=== PATIENT | male | born 1985 | race Caucasian/White ===

== ENCOUNTER 2016-08-13 15:37 | Observation (INO) | payer MEDICARE, MEDICAID ==
[~2016-08-13] VITALS: Ht 185.4 cm; Wt 75.0 kg
[~2016-08-13 15:37] MED LIST: ALBU1AER INH; BACL10TA; PALI234P IM; SYMB160A INH
[2016-08-13 15:38] VITALS: BP 149/87; PULSE 90; RESP 19; TEMP 97.9; O2SAT 98
--- NOTE | 2016-08-13 15:48 | PD ---
Physical Exam Date Seen by Provider: Aug 13, 2016 Time Seen by Provider: 15:46 Narrative 31 yo male here for abdominal pain and N/V. Started today. Pain is 10/10. Nothing makes it better. No injuries. No other medical complaints today. No bloody hemesys. Vitals sign stable. Patient awaiting bed placement. Data Data Last Documented VS Vital Signs Date Time Temp Pulse Resp B/P Pulse Ox O2 Delivery O2 Flow Rate FiO2 08/13/16 15:38 97.9 90 19 149/[address] [facility] Medical Record Reviewed: Yes Supervised Visit with NASH: Devyn Lora Aug 13, 2016 15:48
[2016-08-13] MEDS ORDERED: SODIUM CHLOR 0.9% 1000 ML INJ 1,000 ML IV SCH (18:48)
--- NOTE | 2016-08-13 18:56 | PD ---
HPI Chief Complaint: Abdominal Pain Time Seen by Provider: 18:34 Travel History International Travel<30 days: No Contact w/Intl Traveler<30days: No Traveled to known affect area: No History of Present Illness HPI Patient is a 31-year-old male who presents to emergency room with complaints of abdominal pain. Patient reports that this morning, he has had diffuse abdominal pain with nausea and vomiting. Denies any diarrhea. Patient reports the pain is worse to his right lower quadrant of his abdomen. Denies history of pain like this in the past. Patient denies fevers or chills, reports that nothing is making his pain better or worse. Denies any sick contacts. Reports that he has not been able to eat anything a secondary to this nausea, vomiting or abdominal pain. [facility] Social History Alcohol Use: Yes Tobacco Use: Yes Substance Use: No Allergies-Medications (Allergen,Severity, Reaction): Coded Allergies: Codeine (Verified Allergy, Unknown, 06/15/15) Reported Meds & Prescriptions Reported Meds & Active Scripts Active Reported Symbicort Inh (Budesonide/Formoterol Fumarate) 80-4.5 Mcg/Act Aero 2 Puff INH Q12HR Proair Hfa 8.5 GM Inh (Albuterol Sulfate) 90 Mcg/Act Aer 2 Puff INH Q4-6H PRN 108 mcg/actuation Gemfibrozil 600 Mg Tab 600 Mg PO BIDAC Take 30 minutes prior to breakfast and dinner. Baclofen 10 Mg Tab 10 Mg PO BID Review of Systems General / Constitutional: No: Fever, Chills Eyes: No: Visual changes HENT: No: Headaches Cardiovascular: No: Chest Pain or Discomfort Respiratory: No: Shortness of Breath Gastrointestinal: Positive: Nausea, Vomiting, Abdominal Pain, No: Diarrhea, Constipation Genitourinary: No: Dysuria Musculoskeletal: No: Pain Skin: No Rash Neurologic: No: Weakness Psychiatric: No: Depression Endocrine: No: Polydipsia Hematologic/Lymphatic: No: Easy Bruising Physical Exam Narrative GENERAL: No acute distress, nontoxic SKIN: Focused skin assessment warm/dry. HEAD: Atraumatic. Normocephalic. EYES: Pupils equal and round. No scleral icterus. No injection or drainage. ENT: No nasal bleeding or discharge. Mucous membranes pink and moist. NECK: Trachea midline. No JVD. CARDIOVASCULAR: Regular rate and rhythm. No murmur appreciated. RESPIRATORY: No accessory muscle use. Clear to auscultation. Breath sounds equal bilaterally. GASTROINTESTINAL: Abdomen soft, tender to the right lower quadrant with rebound or guarding on exam, nondistended abdomen MUSCULOSKELETAL: No obvious deformities. No clubbing. No cyanosis. No edema. NEUROLOGICAL: Awake and alert. No obvious cranial nerve deficits. Motor grossly within normal limits. Normal speech. PSYCHIATRIC: Appropriate mood and affect; insight and judgment normal. Data Data Last Documented VS Vital Signs Date Time Temp Pulse Resp B/P Pulse Ox O2 Delivery O2 Flow Rate FiO2 08/13/16 20:51 98 18 144/88 100 Room Air 08/13/16 15:38 97.9 Orders Complete Blood Count With Diff (08/13/16 18:48) Comprehensive Metabolic Panel (08/13/16 18:48) Lipase (08/13/16 18:48) Prothrombin Time / Inr (Pt) (08/13/16 18:48) Act Partial Throm Time (Ptt) (08/13/16 18:48) Urinalysis - C+S If Indicated (08/13/16 18:48) Ct Abd/Pel W Iv Contrast(Rout) (08/13/16 18:48) Iv Access Insert/Monitor (08/13/16 18:48) NPO (08/13/16 18:48) Ondansetron Inj (Zofran Inj) (08/13/16 19:00) Sodium Chlor 0.9% 1000 Ml Inj (Ns 1000 M (08/13/16 18:48) Sodium Chloride 0.9% Flush (Ns Flush) (08/13/16 19:00) Ketorolac Inj (Toradol Inj) (08/13/16 19:00) Iohexol 350 Inj (Omnipaque 350 Inj) (08/13/16 20:14) Labs Laboratory Tests Test 08/13/16 18:50 White Blood Count 15.4 TH/MM3 Red Blood Count 5.45 MIL/MM3 Hemoglobin 17.4 GM/DL Hematocrit 51.0 % Mean Corpuscular Volume 93.5 FL Mean Corpuscular Hemoglobin 31.9 PG Mean Corpuscular Hemoglobin 34.1 % Concent Red Cell Distribution Width 12.8 % Platelet Count 246 TH/MM3 Mean Platelet Volume 8.5 FL Neutrophils (%) (Auto) 87.3 % Lymphocytes (%) (Auto) 5.8 % Monocytes (%) (Auto) 6.8 % Eosinophils (%) (Auto) 0.0 % Basophils (%) (Auto) 0.1 % Neutrophils # (Auto) 13.4 TH/MM3 Lymphocytes # (Auto) 0.9 TH/MM3 Monocytes # (Auto) 1.0 TH/MM3 Eosinophils # (Auto) 0.0 TH/MM3 Basophils # (Auto) 0.0 TH/MM3 CBC Comment DIFF FINAL Differential Comment Prothrombin Time 10.0 SEC Prothromb Time International 0.9 RATIO Ratio Activated Partial 26.4 SEC Thromboplast Time Urine Color LIGHT-YELLOW Urine Turbidity CLEAR Urine pH 7.0 Urine Specific [place] 1.004 Urine Protein NEG mg/dL Urine Glucose (UA) NEG mg/dL Urine Ketones NEG mg/dL Urine Occult Blood NEG Urine Nitrite NEG Urine Bilirubin NEG Urine Urobilinogen LESS THAN 2.0 MG/DL Urine Leukocyte Esterase NEG Urine Bacteria RARE /hpf Microscopic Urinalysis Comment CULT NOT INDICATED Sodium Level 135 MEQ/L Potassium Level 3.7 MEQ/L Chloride Level 98 MEQ/L Carbon Dioxide Level 26.7 MEQ/L Anion Gap 10 MEQ/L Blood Urea Nitrogen 9 MG/DL Creatinine 1.13 MG/DL Estimat Glomerular Filtration 75 ML/MIN Rate Random Glucose 108 MG/DL Calcium Level 9.6 MG/DL Total Bilirubin 0.8 MG/DL Aspartate Amino Transf 21 U/L (AST/SGOT) Alanine Aminotransferase 31 U/L (ALT/SGPT) Alkaline Phosphatase 73 U/L Total Protein 8.0 GM/DL Albumin 4.4 GM/DL Lipase 112 U/L [facility] Medical Decision Making Medical Screen Exam Complete: Yes Emergency Medical Condition: Yes Interpretation(s) Vital Signs Date Time Temp Pulse Resp B/P Pulse Ox O2 Delivery O2 Flow Rate FiO2 08/13/16 15:38 97.9 90 19 149/87 98 Room Air Differential Diagnosis Acute appendicitis, gastroenteritis, UTI, electrolyte abnormality, dehydration Narrative Course Patient is a 31-year-old male who presents to emergency room with complaints of abdominal pain which has been ongoing all day. He endorses the pain is diffuse throughout his abdomen. On palpation, patient has increased pain to his right lower quadrant with no rebound or guarding on exam. Vital Signs Date Time Temp Pulse Resp B/P Pulse Ox O2 Delivery O2 Flow Rate FiO2 08/13/16 15:38 97.9 90 19 149/87 98 Room Air Patient with RLQ abdominal pain. Labs as well as ct of abdomen ordered to evaluate for possible appendicitis. Laboratory Tests Test 08/13/16 18:50 White Blood Count 15.4 TH/MM3 (4.0-11.0) Red Blood Count 5.45 MIL/MM3 (4.50-5.90) Hemoglobin 17.4 GM/DL (13.0-17.0) Hematocrit 51.0 % (39.0-51.0) Mean Corpuscular Volume 93.5 FL (80.0-100.0) Mean Corpuscular Hemoglobin 31.9 PG (27.0-34.0) Mean Corpuscular Hemoglobin 34.1 % Concent (32.0-36.0) Red Cell Distribution Width 12.8 % (11.6-17.2) Platelet Count 246 TH/MM3 (150-450) Mean Platelet Volume 8.5 FL (7.0-11.0) Neutrophils (%) (Auto) 87.3 % (16.0-70.0) Lymphocytes (%) (Auto) 5.8 % (9.0-44.0) Monocytes (%) (Auto) 6.8 % (0.0-8.0) Eosinophils (%) (Auto) 0.0 % (0.0-4.0) Basophils (%) (Auto) 0.1 % (0.0-2.0) Neutrophils # (Auto) 13.4 TH/MM3 (1.8-7.7) Lymphocytes # (Auto) 0.9 TH/MM3 (1.0-4.8) Monocytes # (Auto) 1.0 TH/MM3 (0-0.9) Eosinophils # (Auto) 0.0 TH/MM3 (0-0.4) Basophils # (Auto) 0.0 TH/MM3 (0-0.2) CBC Comment DIFF FINAL Differential Comment Prothrombin Time 10.0 SEC (9.8-11.6) Prothromb Time International 0.9 RATIO Ratio Activated Partial 26.4 SEC Thromboplast Time (24.3-30.1) Urine Color LIGHT-YELLOW (YELLW/STRAW) Urine Turbidity CLEAR (CLEAR) Urine pH 7.0 (5.0-8.5) Urine Specific [place] 1.004 (1.002-1.035) Urine Protein NEG mg/dL (NEG-TRACE) Urine Glucose (UA) NEG mg/dL (NEG) Urine Ketones NEG mg/dL (NEG) Urine Occult Blood NEG (NEG) Urine Nitrite NEG (NEG) Urine Bilirubin NEG (NEG) Urine Urobilinogen LESS THAN 2.0 MG/DL (LESS THAN 2.0) Urine Leukocyte Esterase NEG (NEG) Urine Bacteria RARE /hpf (NONE) Microscopic Urinalysis Comment CULT NOT INDICATED Sodium Level 135 MEQ/L (136-145) Potassium Level 3.7 MEQ/L (3.5-5.1) Chloride Level 98 MEQ/L (98-107) Carbon Dioxide Level 26.7 MEQ/L (21.0-32.0) Anion Gap 10 MEQ/L (5-15) Blood Urea Nitrogen 9 MG/DL (7-18) Creatinine 1.13 MG/DL (0.60-1.30) Estimat Glomerular Filtration 75 ML/MIN (>89) Rate Random Glucose 108 MG/DL (74-106) Calcium Level 9.6 MG/DL (8.5-10.1) Total Bilirubin 0.8 MG/DL (0.2-1.0) Aspartate Amino Transf 21 U/L (15-37) (AST/SGOT) Alanine Aminotransferase 31 U/L (12-78) (ALT/SGPT) Alkaline Phosphatase 73 U/L (45-117) Total Protein 8.0 GM/DL (6.4-8.2) Albumin 4.4 GM/DL (3.4-5.0) Lipase 112 U/L (73-393) Last Impressions Abdomen/Pelvis CT 08/13/16 1848 Signed Impressions: Service Date/Time: Saturday, August 13, 2016 20:12 - CONCLUSION: Appendicitis. Gabriel Lowry MD Patient with acute appendicitis. I reviewed all labs and all studies with patient detail. Patient agreeable to plan of care. Reviewed with general surgery Dr. Jeffrey who accepts patient to his service. Physician Communication Physician Communication case reviewed with Dr. Jeffrey who accepts pt to service Diagnosis Primary Impression: Appendicitis, acute Qualified Code: K35.3 - Acute appendicitis with localized peritonitis Admitting Information Admitting Physician Requests: Observation Marilu Marie DO Aug 13, 2016 18:56
[2016-08-13] MEDS ORDERED: SODIUM CHLORIDE 0.9% FLUSH 10 ML FLUSH IV FLUSH PRN ×2 (19:00→22:15)
[2016-08-13] MEDS ORDERED: ONDANSETRON HCL 4 MG/2 ML VIAL IVP ONE (19:00)
[2016-08-13] MEDS ORDERED: KETOROLAC TROMETHAMINE 30 MG/ML (IVP) VIAL IV PUSH ONE (19:00)
[2016-08-13 19:16] LABS: AUTOMATED NEUTROPHIL # 13.4 TH/MM3 (1.8-7.7); BASOPHIL % 0.1 % (0.0-2.0); HEMO FLAGS DIFF FINAL; LYMPH % 5.8 % (9.0-44.0); LYMPHOCYTE # 0.9 TH/MM3 (1.0-4.8); MEAN CELL VOLUME 93.5 FL (80.0-100.0); MEAN CORPUSCULAR HEMOGLOBIN 31.9 PG (27.0-34.0); MEAN CORPUSCULAR HGB CONC 34.1 % (32.0-36.0); MONO % 6.8 % (0.0-8.0); NEUT % 87.3 % (16.0-70.0); PLATELET COUNT 246 TH/MM3 (150-450); RED BLOOD COUNT 5.45 MIL/MM3 (4.50-5.90); RED CELL DISTRIBUTION WIDTH 12.8 % (11.6-17.2); WHITE BLOOD COUNT 15.4 TH/MM3 (4.0-11.0)
[2016-08-13 19:29] LABS: APTT (PATIENT) 26.4 SEC (24.3-30.1); INTERNATIONAL NORMALIZED RATIO 0.9 RATIO
[2016-08-13 19:35] LABS: BACTERIA, URINE RARE /hpf; BLOOD, URINE NEG (NEG); COMMENT (UR) CULT NOT INDICATED; CULTURE IF INDICATED CULT NOT INDICATED; GLUCOSE,URINE NEG (NEG); KETONE, URINE NEG (NEG); NITRITE,URINE NEG (NEG); URINE COLOR LIGHT-YELLOW (YELLW/STRAW)
[2016-08-13 19:39] LABS: ANION GAP 10 MEQ/L (5-15); AST (GOT) 21 U/L (15-37); BICARBONATE 26.7 MEQ/L (21.0-32.0); BLOOD UREA NITROGEN 9 MG/DL (7-18); CHLORIDE 98 MEQ/L (98-107); GLOMERULAR FILTRATION RATE 75 ML/MIN (>89); POTASSIUM 3.7 MEQ/L (3.5-5.1); SODIUM (NA) 135 MEQ/L (136-145)
[2016-08-13 19:42] LABS: ALKALINE PHOSPHATASE 73 U/L (45-117); ALT (GPT) 31 U/L (12-78); TOTAL BILIRUBIN ADULT 0.8 MG/DL (0.2-1.0)
[2016-08-13] MEDS ORDERED: IOHEXOL 350 MG/ML 10 ML VIAL (for RAD DIAG) IV ONE (20:14)
[2016-08-13 20:51] VITALS: BP 144/88; PULSE 98; RESP 18; O2SAT 100
[2016-08-13] MEDS ORDERED: ALBUAER3 INH (20:55)
[2016-08-13] MEDS ORDERED: SYMB80AE INH (20:55)
[2016-08-13] MEDS ORDERED: BACL10TA PO (20:55)
[2016-08-13] MEDS ORDERED: GEMF600T PO (20:55)
--- NOTE | 2016-08-13 20:58 | RADRPT ---
EXAM DATE/TIME: 08/13/2016 20:12 [place] COMPARISON: No previous studies available for comparison. INDICATIONS : Abdominal pain with nausea and vomiting. IV CONTRAST: 100 cc Omnipaque 350 (iohexol) IV ORAL CONTRAST: No oral contrast ingested. RADIATION DOSE: 6.64 CTDIvol (mGy) MEDICAL HISTORY : None SURGICAL HISTORY : None. ENCOUNTER: Initial ACUITY: 1 day PAIN SCALE: 5/10 LOCATION: abdomen TECHNIQUE: Volumetric scanning of the abdomen and pelvis was performed. Using automated exposure control and ad justment of the mA and/or kV according to patient size, radiation dose was kept as low as reasonably achievable to obtain optimal diagnostic quality images. FINDINGS: LOWER LUNGS: The visualized lower lungs are clear. LIVER: Homogeneous density without lesion. There is no dilation of the biliary tree. No calcified [place] es. SPLEEN: Normal size without lesion. PANCREAS: Within normal limits. KIDNEYS: Normal in size and shape. There is no mass, stone or hydronephrosis. ADRENAL GLANDS: Within normal limits. VASCULAR: There is no aortic aneurysm. BOWEL/MESENTERY: The appendix is distended. There is mild induration around the appendix in the right lower quadrant. An abscess is not seen. ABDOMINAL WALL: Within normal limits. RETROPERITONEUM: There is no lymphadenopathy. BLADDER: No wall thickening or mass. REPRODUCTIVE: Within normal limits. INGUINAL: There is no lymphadenopathy or hernia. MUSCULOSKELETAL: Within normal limits for patient age. CONCLUSION: Appendicitis. Gabriel Lowry MD on August 13, 2016 at 20:54 Board Certified Radiologist. This report was verified electronically.
[2016-08-13] MEDS ORDERED: PIPERACIL-TAZO 3.375 GM PREMIX 50 ML IV ONE (21:30)
[2016-08-13] MEDS ORDERED: CIPROFLOXACIN 400 MG PREMIX 200 ML IV ONE (21:30)
[2016-08-13] MEDS ORDERED: metroNIDAZOLE 500 MG INJ 100 ML IV ONE (21:30)
[2016-08-13] MEDS ORDERED: HYDROmorphone HCL PF 1 MG/ML VIAL IVP PRN (22:15)
[2016-08-13] MEDS ORDERED: ENALAPRILAT 1.25 MG/ML VIAL IV PRN (22:15)
[2016-08-13] MEDS ORDERED: ACETAMINOPHEN/HYDROcodone 325 MG/5 MG TAB PO PRN ×2 (22:15)
[2016-08-13] MEDS ORDERED: KETOROLAC TROMETHAMINE 30 MG/ML (IVP) VIAL IVP PRN (22:15)
[2016-08-13] MEDS ORDERED: ONDANSETRON HCL 4 MG/2 ML VIAL IV PRN (22:15)
[2016-08-13 22:32] VITALS: BP 109/58; PULSE 100; RESP 18; O2SAT 97
[2016-08-13] MEDS: SODIUM CHLOR 0.9% 1000 ML INJ 1,000 ML IV SCH (22:33)
--- NOTE | 2016-08-13 22:57 | MH ---
cc: JOSELITO MURRAY DATE OF ADMISSION 08/13/2016 CHIEF COMPLAINT Acute appendicitis. HISTORY OF PRESENT ILLNESS The patient is a 31-year-old male who this afternoon developed increasing abdominal pain on his right flank area. He presented to the emergency department at [facility], was found to have significant tenderness on exam. Evaluation showed a leukocytosis and CT scan concerning for acute appendicitis. This was non-ruptured. The patient was not found to be septic. Patient has never had pain like this prior. No previous abdominal operations. No nausea, vomiting, diarrhea, constipation, fevers, chills, chest pain, shortness breath or any other symptoms. REVIEW OF SYSTEMS 12-point review of systems is conducted with the patient, is negative except in the pertinent positives mentioned above in history of present illness. PAST MEDICAL HISTORY Asthma. PAST SURGICAL HISTORY None. SOCIAL HISTORY None. ALLERGIES CODEINE MEDICATIONS 1. ProAir 2. Gemfibrozil. 3. Baclofen. SOCIAL HISTORY The patient uses alcohol, uses tobacco, denies illicit drug use. FAMILY HISTORY Noncontributory. No history of appendicitis. PHYSICAL EXAMINATION VITAL SIGNS: Pulse 98, blood pressure 144/88, temperature 97.9 degrees GENERAL: The patient is well-developed well-nourished male in no acute distress. HEENT: Head normocephalic, atraumatic. Pupils round, react and accommodate to light. Sclerae anicteric. Mucous membranes are moist. NECK: Supple. No JVD. LUNGS: Clear to auscultation bilaterally. Nonlabored breathing pattern. HEART: Regular rhythm. ABDOMEN: Soft, some tenderness in the right lower quadrant without focal rebound tenderness or peritonitis. No Abbott sign, no flank tenderness. BACK: No CVA tenderness. EXTREMITIES: No clubbing, cyanosis or edema. NEUROLOGIC: The patient is awake, alert and oriented times four. Nonfocal peripheral exam. Cranial nerves II XII are grossly intact. LABORATORY FINDINGS White blood cell count elevated at 15, otherwise unremarkable. ASSESSMENT/PLAN Patient is a 31-year-old male with early acute appendicitis. The patient does have some tenderness on exam and clinical history consistent with appendicitis. CT scan shows possible early appendicitis. I discussed with the patient options including antibiotic therapy and surgical treatment. The patient would like to undergo antibiotic therapy, but has also agreed to undergo laparoscopic appendectomy. I did explain the risks, benefits and alternatives to this treatment and he has consented to the procedure. We will bring the patient to the operating room urgently based on operating room availability. MD SUE Abdi/ /10:18 PM /10:43 PM
[2016-08-13] MEDS: PANTOPRAZOLE SODIUM 40 MG VIAL IVP SCH (23:03)
[2016-08-14 00:39] VITALS: BP 123/71; PULSE 97; RESP 18; TEMP 98; O2SAT 96
[2016-08-14] MEDS: PIPERACIL-TAZO 3.375 GM PREMIX 50 ML IV SCH ×4 (04:26→20:53)
[2016-08-14 04:53] VITALS: BP 118/72; PULSE 92; RESP 18; TEMP 97.8; O2SAT 97
[2016-08-14] MEDS ORDERED: fentaNYL CITRATE 250 MCG/5 ML AMP ONE (06:05)
[2016-08-14] MEDS ORDERED: MIDAZOLAM HCL 2 MG/2 ML VIAL ONE (06:05)
[2016-08-14] MEDS ORDERED: ACETAMINOPHEN 1000 MG/100 ML VIAL IV ONE (06:05)
[2016-08-14] MEDS ORDERED: BUPIVACAINE/EPINEPHRINE 0.5% PF 30 ML VIAL INFIL ONE (07:18)
--- NOTE | 2016-08-14 07:26 | HHI.PR ---
Immediate Post Op Note Procedure Date: Aug 14, 2016 Pre Op Diagnosis: (1) Appendicitis, acute Post Op Diagnosis: (1) Appendicitis, acute Surgeon: Maikol Jeffrey Lieutenant Firefighter(s): staff Procedure: laparoscopic appendectomy Findings: acute uncomplicated appendicitis Complications: none Specimen(s) removed: appy Estimated blood loss: 25ml Anesthesia: General, Local Drains: None IVF Patient to: PACU Patient Condition: Good Maikol Jeffrey MD Aug 14, 2016 07:26
[2016-08-14] MEDS: GEMFIBROZIL 600 MG TAB PO SCH ×2 (07:30→16:55)
[2016-08-14] MEDS ORDERED: ALBUTEROL SULFATE 90 MCG/ACT HFA 18 GM INHALER INH PRN (07:30)
[2016-08-14] MEDS: SODIUM CHLOR 0.9% 1000 ML INJ 1,000 ML IV SCH ×2 (07:56→09:32)
[2016-08-14] MEDS ORDERED: DO NOT ADM ANY ANTICOAGULANT DRUGS PRN (08:00)
[2016-08-14] MEDS: BUDESONIDE-FORMOTEROL 80/4.5 MCG INHALER INH SCH ×2 (09:00→20:53)
[2016-08-14] MEDS: BACLOFEN 10 MG TAB PO SCH ×2 (09:36→20:53)
[2016-08-14 11:49] VITALS: BP 126/78; PULSE 74; RESP 17; TEMP 96.7; O2SAT 95
[2016-08-14] MEDS ORDERED: ONDANSETRON HCL 4 MG/2 ML VIAL IV PUSH ONE (13:55)
[2016-08-14] MEDS ORDERED: PROPOFOL 200 MG/20 ML AMP IV ONE (13:55)
[2016-08-14 16:00] VITALS: BP 126/74; PULSE 77; RESP 17; TEMP 97.8; O2SAT 96
[2016-08-14 20:00] VITALS: BP 122/82; PULSE 99; RESP 17; TEMP 96.3; O2SAT 95
[2016-08-14] MEDS: PANTOPRAZOLE SODIUM 40 MG VIAL IVP SCH (23:38)
[2016-08-15] VITALS: BP 98/50; PULSE 98; RESP 18; TEMP 96.4; O2SAT 95
[2016-08-15] MEDS: PIPERACIL-TAZO 3.375 GM PREMIX 50 ML IV SCH ×2 (03:42→09:13)
[2016-08-15 04:00] VITALS: BP 137/87; PULSE 70; RESP 17; TEMP 96.4; O2SAT 94
[2016-08-15] MEDS: SODIUM CHLOR 0.9% 1000 ML INJ 1,000 ML IV SCH (04:11)
[2016-08-15] MEDS: GEMFIBROZIL 600 MG TAB PO SCH ×2 (06:00→07:21)
[2016-08-15] MEDS: BUDESONIDE-FORMOTEROL 80/4.5 MCG INHALER INH SCH (07:20)
[2016-08-15] MEDS: BACLOFEN 10 MG TAB PO SCH (07:20)
[2016-08-15 07:52] VITALS: BP 117/75; PULSE 69; RESP 17; TEMP 97.1; O2SAT 97
[2016-08-15 08:50] VITALS: O2SAT 97
--- NOTE | 2016-08-15 11:19 | HHI.PR ---
Subjective Subjective Notes pain ok, tolerating PO Objective Vitals/I&O Vital Signs Date Time Temp Pulse Resp B/P Pulse Ox O2 Delivery O2 Flow Rate FiO2 08/15/16 08:50 97 21 08/15/16 07:52 97.1 69 17 117/75 08/14/16 08:28 Room Air 08/14/16 08:00 2 Cardiovascular: Regular Lungs: Clear Abdomen: Non-distended, Post-op tenderness Extremities: Perfused A/P Assessment and Plan 31yo POD#1 lap appy, stable sheridan PO pain ok DC home Maikol Jeffrey MD Aug 15, 2016 11:19
[2016-08-15 11:38] VITALS: BP 121/74; PULSE 86; RESP 17; TEMP 96.5; O2SAT 96
--- NOTE | 2016-10-01 12:49 | MP ---
cc: JOSELITO MURRAY DATE OF SURGERY: 08/14/2016 PREOPERATIVE DIAGNOSIS Acute appendicitis. POSTOPERATIVE DIAGNOSIS Acute suppurative uncomplicated appendicitis. ATTENDING SURGEON Wojciech DANIELS None. ANESTHESIA General. ESTIMATED BLOOD LOSS Less than 10 cc. COMPLICATIONS None. FINDINGS Acute uncomplicated appendicitis. INDICATION FOR PROCEDURE The patient is a 31-year-old man who developed 24 hours of abdominal pain relocated in his right lower quadrant. The patient underwent a CT scan at [facility] which revealed concern for early appendicitis. General surgery was consulted. I discussed with the patient the risks, benefits, alternatives to laparoscopic appendectomy including possible nonoperative management. The patient wished to undergo laparoscopic appendectomy. DETAILS OF PROCEDURE The patient was taken to the operating room and placed in a supine position and placed under general endotracheal anesthesia. The patient's abdomen was shaved, prepped and draped in a sterile fashion. A timeout was performed. His abdomen was entered through a Fine type direct entry just below the umbilicus. We insufflated the abdomen and surveyed the abdomen. There was no evidence of any complication from our entry. We were then able to place two 5 mm ports in the suprapubic position as well as in the lower abdomen. We were able to easily find the appendix as the taenia terminated into the base of the appendix, the cecum. This was suppurative without any evidence of rupture or gangrene. We used an [place] stapler to divide the base of the appendix of the mesentery without difficulty. The appendix was removed from the abdomen with an EndoCatch bag through the Doe 10 mm port. We did remove any blood products and inflammatory fluid. There was no evidence of any abscess, repellent material or any leak or bleeding. There was no evidence of any complication. There was no other intra-abdominal pathology. At this point in time we turned our attention towards closure. We relocated the omentum back to the right lower quadrant. We removed all ports under visualization with the laparoscope and expressed pneumoperitoneum. We closed the fascia of the Doe entry with 0 Vicryl suture. We closed the skin with 4-0 Monocryl and Dermabond. The patient was discontinued from anesthesia and taken to the PACU in stable condition. The patient tolerated the procedure well with no apparent complications. All counts were correct and I was present and scrubbed for the entire procedure. MD SUE Abdi/PAULINE /11:58 AM /12:43 PM
== END 2016-08-15 15:47 ==
LOC: NEPD 15:37 → NEDA 21:20 → NEPGCP 23:06 → N06B 08-14 07:47 → N06A 08-14 15:48
PROVIDERS: ADMIT Surgery; ATTEND Surgery
DX: K35.3 Acute appendicitis with localized peritonitis (principal); J45.909 Unspecified asthma, uncomplicated; K21.9 Gastro-esophageal reflux disease without esophagitis; D72.829 Elevated white blood cell count, unspecified; Z72.0 Tobacco use
CPT/HCPCS: 00840; 44970; 74177; 80053; 81001; 83690; 85025; 85610; 85730; 88304; 96374; 96375; 99285; C9113; G0378; J0131; J1885; J2250; J2405; J2543; J3010; J7030; Q9967

== ENCOUNTER 2017-07-18 13:55 | Emergency (ER) | payer MEDICARE, MEDICAID ==
[~2017-07-18] VITALS: Ht 185.4 cm; Wt 70.9 kg
[~2017-07-18 13:55] MED LIST changes: -ALBU1AER INH; +ALBUAER3 INH; -BACL10TA; +BACL10TA PO; +GEMF600T PO; -PALI234P IM; -SYMB160A INH; +SYMB80AE INH
[2017-07-18 14:17] VITALS: BP 124/77; PULSE 97; RESP 18; TEMP 98.6; O2SAT 97
--- NOTE | 2017-07-18 14:59 | PD ---
HPI Chief Complaint: Eye Problems/Injury Time Seen by Provider: 14:56 Travel History International Travel<30 days: No Contact w/Intl Traveler<30days: No Traveled to known affect area: No History of Present Illness HPI 32-year-old male presents for evaluation of soft tissue swelling inferior to the left eye. Symptoms started this morning when he woke up. He denies any pain or itching. He denies any drainage, matting, watery eyes, orbital pain itself. He reports that he was out in the sun a lot this weekend and [place] He has no other complaints at this time. History Past Medical Histgory Hx Cancer: No Social History Alcohol Use: No Tobacco Use: Yes Allergies-Medications (Allergen,Severity, Reaction): Coded Allergies: codeine (Unverified Allergy, Unknown, 11/30/16) Reported Meds & Prescriptions Reported Meds & Active Scripts Active Reported Symbicort Inh (Budesonide/Formoterol Fumarate) 80-4.5 Mcg/Act Aero 2 Puff INH Q12HR Proair Hfa 8.5 GM Inh (Albuterol Sulfate) 90 Mcg/Act Aer 2 Puff INH Q4-6H PRN 108 mcg/actuation Gemfibrozil 600 Mg Tab 600 Mg PO BIDAC Take 30 minutes prior to breakfast and dinner. Baclofen 10 Mg Tab 10 Mg PO BID Review of Systems General / Constitutional: No: Fever, Chills Eyes: Positive: Other (Positive for minor soft tissue swelling inferior to the left eye), No: Blurred Vision, Drainage, Redness, Foreign Body Sensation, Pain, Tearing Physical Exam Narrative GENERAL: Well-nourished male in no acute distress SKIN: Warm and dry. Patient appears sunburned. There is very minimal edema inferior to the left eye. No erythema or induration of the skin. No tenderness to palpation. HEAD: Atraumatic. Normocephalic. EYES: Pupils equal and round. No scleral icterus. No injection or drainage. ENT: No nasal bleeding or discharge. Mucous membranes pink and moist. NECK: Trachea midline. No JVD. CARDIOVASCULAR: Regular rate and rhythm. No murmur appreciated. RESPIRATORY: No accessory muscle use. Clear to auscultation. Breath sounds equal bilaterally. Data Data Last Documented VS Vital Signs Date Time Temp Pulse Resp B/P (MAP) Pulse Ox O2 Delivery O2 Flow Rate FiO2 07/18/17 14:17 98.6 97 18 124/77 (93) 97 MDM Medical Screen Exam Complete: Yes Emergency Medical Condition: No Narrative Course The patient has mild edema inferior to the left eye likely secondary to sunburn. It is not painful or irritated and is to suggest periorbital cellulitis. There is no emergent treatment necessary at this time. A medical screening exam was performed: At the time of evaluation the presenting medical condition was determined not to be of an emergent nature. The patient was given the option of receiving additional care, but declined. Patient was given options for additional community resources from which to obtain care. The Patient Has Been advised to seek medical attention for their presenting complaint. The patient has been advised to return to the ER at any time if an emergent condition develops. Primary Impression: Encounter for medical screening examination Aleks Chan Jul 18, 2017 14:59
== END 2017-07-18 15:05 | disposition left against medical advice (07) ==
LOC: NEPK 13:55
DX: H57.8 Other specified disorders of eye and adnexa (principal)
CPT/HCPCS: 99281